=== PATIENT | female | born 2000 | race Caucasian/White ===

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

== ENCOUNTER 2022-07-05 22:31 | Emergency (ER) | payer MEDICAID ==
[~2022-07-05] VITALS: Ht 160 cm; Wt 98.6 kg
[~2022-07-05 22:31] MED LIST changes: +AMOXICILLIN 8751 TAB PO; +IBU600 MG PO; +PRENATAL TABLET PO
[2022-07-05 22:32] VITALS: TEMP 97.6
[2022-07-05] MEDS ORDERED: CEPHALEXIN500 M1 PO (23:14)
[2022-07-05 23:30] VITALS: BP 123/81; PULSE 80
== END 2022-07-05 23:40 | disposition home or self-care (01) ==
LOC: COL.ER 22:31
DX: S61.216A Laceration without foreign body of right little finger without damage to nail, initial encounter (principal); Z28.310 Unvaccinated for COVID-19; Y04.8XXA Assault by other bodily force, initial encounter